=== PATIENT | male | born 1975 | race Caucasian/White ===

== ENCOUNTER 2022-02-23 12:47 | Emergency (ER) | payer OTHER | END 2022-02-23 14:04 | disposition home or self-care (01) | LOC: ERS 12:47 | DX: S06.0X9A Concussion with loss of consciousness of unspecified duration, initial encounter (principal); W01.0XXA Fall on same level from slipping, tripping and stumbling without subsequent striking against object, initial encounter | CPT/HCPCS: 70450 ==